=== PATIENT | female | born 1985 | race Caucasian/White ===

== ENCOUNTER 2018-12-25 18:48 | Emergency (ER) | payer BC ==
--- NOTE | 2018-12-25 19:27 | ERPHSYRPT ---
- History of Present Illness Time Seen by Provider: 12/25/18 19:15 Source: patient Exam Limitations: no limitations Patient Subjective Stated Complaint: Right side of jaw swollen due to an abscessed bottom tooth in the mouth, began 3 days ago, has dentist appt for January 21 for an extraction Triage Nursing Assessment: Pt rates pain 8/10, hypertensive, denies any other issues Physician History: 33-year-old white female arrives with complaint of pain in her right lower mandibular region symptoms for 3 days she states she has some swelling in the area. She states she has an appointment with a dentist on January 21. She has no fever no nausea no vomiting. Past medical history is negative. Past surgical history cholecystectomy and tubal ligation Timing/Duration: day(s) (3 days) Severity: moderate Modifying Factors: Worsens With: eating, immobilization, medication, movement, rest, acetaminophen, ibuprofen, nothing Associated Symptoms: No nausea, No vomiting, No abdominal pain, No shortness of breath, No heartburn, No diaphoresis, No cough, No chills, No chest pain, No fever, No headaches, No loss of appetite, No malaise, No rash, No syncope, No seizure, No weakness Allergies/Adverse Reactions: No Known Drug Allergies Allergy (Unverified 12/25/18 18:56) - Review of Systems Constitutional: No Fever, No Chills Eyes: No Symptoms Ears, Nose, & Throat: Mouth Pain, No Ear Pain, No Ear Discharge, No Hearing Changes, No Tinnitus, No Nose Pain, No Nose Congestion, No Nose Discharge, No Sinus Drainage, No Epistaxis, No Mouth Swelling, No Loose Teeth, No Throat Pain , No Throat Swelling, No Hoarse, No Painful Swallowing, No Snoring, No Stridor, No Other Respiratory: No Cough, No Dyspnea Cardiac: No Chest Pain, No Edema, No Syncope Abdominal/Gastrointestinal: No Abdominal Pain, No Nausea, No Vomiting, No Diarrhea Genitourinary Symptoms: No Dysuria Musculoskeletal: No Back Pain, No Neck Pain Skin: No Rash Neurological: No Dizziness, No Focal Weakness, No Sensory Changes Psychological: No Symptoms Endocrine: No Symptoms All Other Systems: Reviewed and Negative - Past Medical History Pertinent Past Medical History: No - Past Surgical History Past Surgical History: Yes Gastrointestinal: Cholecystectomy Female Surgical History: Tubal Ligation - Social History Smoking Status: Current every day smoker How long have you smoked: 20 years Exposure to second hand smoke: Yes Drug Use: none Patient Lives Alone: No - Female History Hx Now: Yes (tubal) - Nursing Vital Signs Nursing Vital Signs: Initial Vital Signs Temperature 98.4 F 12/25/18 18:50 Pulse Rate 100 H 12/25/18 18:50 Blood Pressure 157/103 12/25/18 18:50 O2 Sat by Pulse Oximetry 99 12/25/18 18:50 Pain Scale Pain Intensity 8 - Physical Exam General Appearance: mild distress, alert Eye Exam: PERRL/EOMI, eyes nml inspection Ears, Nose, Throat Exam: normal ENT inspection, TMs normal, pharynx normal, moist mucous membranes, dry mucous membranes, TM abnormal (R), TM abnormal (L), pharyngeal erythema, tonsillar exudate, other (carious tooth right posterior mandibular region mild edema to face overlying this tender in this area) Neck Exam: normal inspection, non-tender, supple, full range of motion Respiratory Exam: normal breath sounds, lungs clear, No respiratory distress Cardiovascular Exam: regular rate/rhythm, normal heart sounds, normal peripheral pulses, capillary refill <2 sec Gastrointestinal/Abdomen Exam: soft, normal bowel sounds, No tenderness, No mass Back Exam: normal inspection, normal range of motion, No CVA tenderness, No vertebral tenderness Extremity Exam: normal inspection, normal range of motion, pelvis stable Neurologic Exam: alert, oriented x 3, 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 She states she's been taking Advil however she states she's not achieving pain control with this. Will go ahead and place patient on amoxicillin 500 mg orally 3 times a day [place] for pain. Inspect it did not find any narcotic prescriptions for this patient. Patient will be encouraged followup with her dentist - Departure Departure Disposition: Home Clinical Impression: Dental caries, Pain, dental, Dental abscess Condition: Fair Critical Care Time: No Referrals: DOCTOR,NO FAMILY [Primary Care Provider] - Additional Instructions: Return home. Amoxicillin 500 mg orally 3 times a day for 10 days. [place] as prescribed. Cold packs to area (external ) 24-48 hours. Continue Advil every 6 hours as needed. Avoid excessively hot or cold foods. Followup with your dentist. Return for acute distress or for severe symptoms. Prescriptions: Hydrocodone/APAP 5-325 Tab^^^ [Cl[place] 5-325 Tablet^^^] 1 each PO Q4HPRN PRN #12 tablet MDD 6 PRN Reason: dental pain Amoxicillin 500 mg PO TID #30 capsule
[2018-12-25 19:38] VITALS: BP 168/101; PULSE 97; O2SAT 96
== END 2018-12-25 19:39 | disposition home or self-care (01) ==
LOC: ED 18:48
DX: K02.9 Dental caries, unspecified (principal); K04.7 Periapical abscess without sinus
CPT/HCPCS: 99283

== ENCOUNTER 2018-12-27 01:29 | Emergency (ER) | payer BC ==
[2018-12-27 01:47] VITALS: O2SAT 99
[2018-12-27] MEDS ORDERED: CLINDAMYCIN-D5W 600 MG/50 ML*** 600 MG/50 ML BAG IV STA (01:53)
--- NOTE | 2018-12-27 02:00 | ERPHSYRPT ---
- History of Present Illness Time Seen by Provider: 12/27/18 01:50 Source: patient Patient Subjective Stated Complaint: pt is alert and oriented. pt is ambulatory with a steady gait. pt comes in with c/o right jaw pain. pt was seen yesterday in the ER for same complaint. pt has worsening swelling and pain. pt states that she moved her dental appointment up to next monday and went to followup at [facility]. pt was given Amoxicillin 500mg in ER yesterday and then at the clinic they gave her another round of Amoxicillin 500mg to take after her first round. pt has severe swelling to her left jaw and lip. Triage Nursing Assessment: see above Physician History: 33-year-old white female seen 2 days ago secondary to dental caries dental abscess patient with pain in the posterior right mandibular region seen here 2 days ago placed on amoxicillin given [place]. Patient states that she had increased swelling in her mouth she was seen yesterday morning at a local clinic. She tried to contact her dentist in the dentist apparently move her appointment up from the end of December 2 next week. Patient arrives she has a large amount of swelling in her right lateral mandibular region. Patient without fevers no nausea no vomiting. Past medical history is negative. Past surgical history includes cholecystectomy and tubal ligation. Allergies/Adverse Reactions: No Known Drug Allergies Allergy (Unverified 12/25/18 18:56) Immunizations Up to Date: Yes - Review of Systems Constitutional: No Fever, No Chills Eyes: No Symptoms Ears, Nose, & Throat: No Symptoms (again so she every, hears all night I can he wants anymore), Mouth Pain, Mouth Swelling, Other (dental pain, increasing dental abscess), No Ear Pain, No Ear Discharge, No Hearing Changes, No Tinnitus , No Nose Congestion, No Nose Discharge, No Sinus Drainage, No Epistaxis, No Loose Teeth, No Throat Pain, No Throat Swelling, No Hoarse, No Painful Swallowing, No Snoring, No Stridor Respiratory: No Cough, No Dyspnea Cardiac: No Chest Pain, No Edema, No Syncope Abdominal/Gastrointestinal: No Abdominal Pain, No Nausea, No Vomiting, No Diarrhea Genitourinary Symptoms: No Dysuria Musculoskeletal: No Back Pain, No Neck Pain Skin: No Rash Neurological: No Dizziness, No Focal Weakness, No Sensory Changes Psychological: No Symptoms Endocrine: No Symptoms All Other Systems: Reviewed and Negative - Past Medical History Pertinent Past Medical History: No - Past Surgical History Past Surgical History: Yes Gastrointestinal: Cholecystectomy Female Surgical History: Tubal Ligation - Social History Smoking Status: Current every day smoker How long have you smoked: 20 years Exposure to second hand smoke: Yes Drug Use: none Patient Lives Alone: No - Female History Hx Now: No - Nursing Vital Signs Nursing Vital Signs: Initial Vital Signs Temperature 98.4 F 12/27/18 01:38 Pulse Rate 97 H 12/27/18 01:38 Respiratory Rate 18 12/27/18 01:38 Blood Pressure 122/87 12/27/18 01:38 O2 Sat by Pulse Oximetry 99 12/27/18 01:38 Pain Scale Pain Intensity 7 - Physical Exam General Appearance: moderate distress, alert Eye Exam: PERRL/EOMI, eyes nml inspection Ears, Nose, Throat Exam: other (dental caries right mandibular molars large dental abscess right lateral mandibular region) Neck Exam: normal inspection, non-tender, supple, full range of motion Respiratory Exam: normal breath sounds, lungs clear, No respiratory distress Cardiovascular Exam: regular rate/rhythm, normal heart sounds, normal peripheral pulses, capillary refill <2 sec Gastrointestinal/Abdomen Exam: soft, normal bowel sounds, No tenderness, No mass Back Exam: normal inspection, normal range of motion, No CVA tenderness, No vertebral tenderness Extremity Exam: normal inspection, normal range of motion, pelvis stable Neurologic Exam: alert, oriented x 3, cooperative, 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, normal mood/affect, nml cerebellar function, nml station & gait, sensation nml, No motor deficits Skin Exam: normal color, warm, dry, No rash SpO2 Interpretation: normal (99%) SpO2: 99 - Course Nursing assessment & vital signs reviewed: Yes Ordered Tests: Active Orders 24 hr Category Date Time Status IV Insertion STAT Care 12/27/18 01:54 Active Medication Summary Discontinued Medications Generic Name Dose Route Start Last Admin Trade Name Freq PRN Reason Stop Dose Admin Clindamycin Phosphate 600 mg 12/27/18 02:36 12/27/18 03:00 Cleocin Phosphate Iv 600 Mg/4 Ml IM 12/27/18 02:37 600 mg STAT ONE Administration Clindamycin Phosphate Confirm 12/27/18 02:40 Cleocin Phosphate Iv 600 Mg/4 Ml Administered 12/27/18 02:41 Dose 600 mg .ROUTE .STK-MED ONE Clindamycin HCl/Dextrose 600 mg in 50 mls @ 100 mls/hr 12/27/18 01:53 02:34 Clindamycin-D5w 600 Mg/50 Ml IV 12/27/18 02:22 Not Given STAT STA Clindamycin HCl/Dextrose Confirm 12/27/18 02:15 Clindamycin-D5w 600 Mg/50 Ml Administered 12/27/18 02:16 Dose 600 mg in 50 mls @ ud IV .STK-MED ONE - Progress Progress: improved Progress Note: 12/27/18 01:58 33-year-old white female seen here 2 days ago secondary to dental abscess she is having increasing swelling in the right mandibular region continued pain in the right posterior molar secondary to a carious tooth. Patient is on amoxicillin she apparently was seen by a local clinic and was given antibiotics to take after the antibiotics I have prescribed 2 days ago but they were the same ones. Will go ahead and write for clindamycin 600 mg im and planfor the patient to go home with clindamycin 300 mg orally 3 times a day for 10 days she is to place cold packs on the area. I have recommended that the patient to followup with a dentist. 12/27/18 02:54 - Departure Departure Disposition: Home Clinical Impression: Dental abscess, Pain, dental Condition: Fair Critical Care Time: No Referrals: DOCTOR,NO FAMILY [Primary Care Provider] - Additional Instructions: Return home. Clindamycin 300 mg orally 3 times a day for 10 days. Cold packs to the area 24-48 hours. (External) Continue [place] as prescribed and or Advil every 6 hours as needed for pain. Followup with your dentist. Return for acute distress severe symptoms or for any problems. Prescriptions: Clindamycin HCl 300 mg PO TID #30 capsule
[2018-12-27] MEDS ORDERED: CLINDAMYCIN-D5W 600 MG/50 ML*** 0 MG/0 ML BAG IV ONE (02:15)
[2018-12-27] MEDS ORDERED: Cleocin Phosphate IV 600 MG/4 ML IM ONE (02:36)
[2018-12-27] MEDS ORDERED: Cleocin Phosphate IV 600 MG/4 ML ONE (02:40)
[2018-12-27 03:01] VITALS: BP 157/93; PULSE 87
== END 2018-12-27 03:34 | disposition home or self-care (01) ==
LOC: ED 01:29
DX: K04.7 Periapical abscess without sinus (principal); K08.89 Other specified disorders of teeth and supporting structures
CPT/HCPCS: 96372; 99283

== ENCOUNTER 2020-09-17 19:20 | Emergency (ER) | payer BC ==
--- NOTE | 2020-09-17 19:42 | ERPHSYRPT ---
- History of Present Illness Time Seen by Provider: 09/17/20 19:42 Source: patient Exam Limitations: no limitations Patient Subjective Stated Complaint: pt states she has bery bad teeth and has been having pain for approx 3 days. states she has a dentist appt set up but not until next week Triage Nursing Assessment: pt alert and oriented, answers questions approp. pt ambulatory with steady gait noted, respirations nonlabored with lungs cta. skin warm and dry. broken teeth noted to lt upper mouth. Physician History: This is a 35-year-old obese white female who has known chronic poor dentition and presents with left upper molar region dental pain. Patient has a dentist appointment next week. She has been using ibuprofen and naproxen as well as Orajel [id number]. This is not helping her pain. She has not had a fever. And there are no intraoral/gingival abscesses present Severity: mild ENT Location: dental Prearrival Treatment: over the counter meds Associated Symptoms: tooth pain Allergies/Adverse Reactions: No Known Drug Allergies Allergy (Verified 09/17/20 19:36) Home Medications: Alprazolam [Xanax] 0.5 mg PO BIDPRN PRN 09/17/20 [History] Venlafaxine HCl ER 75 mg [Effexor XR 75 MG] 75 mg PO DAILY 09/17/20 [History] Hx Tetanus, Diphtheria Vaccination/Date Given: Yes Hx Influenza Vaccination/Date Given: No Hx Pneumococcal Vaccination/Date Given: No Immunizations Up to Date: Yes Travel Risk - International Travel Have you traveled outside of the country in past 3 weeks: No - Coronavirus Screening Are you exhibiting any of the following symptoms?: No Close contact with a COVID-19 positive Pt in past 14-21 Days: No - Vaccine Status Have you recieved a Covid-19 vaccination: No - Review of Systems Constitutional: No Symptoms Eyes: No Symptoms Ears, Nose, & Throat: Other (Dental pain) Respiratory: No Symptoms Cardiac: No Symptoms Abdominal/Gastrointestinal: No Symptoms Genitourinary Symptoms: No Symptoms Musculoskeletal: No Symptoms Skin: No Symptoms Neurological: No Symptoms Psychological: No Symptoms Endocrine: No Symptoms Hematologic/Lymphatic: No Symptoms Immunological/Allergic: No Symptoms All Other Systems: Reviewed and Negative - Past Medical History Pertinent Past Medical History: No - Past Surgical History Past Surgical History: Yes Gastrointestinal: Cholecystectomy Female Surgical History: Tubal Ligation - Social History Smoking Status: Current every day smoker How long have you smoked: 20 years Exposure to second hand smoke: Yes Drug Use: none Patient Lives Alone: No - Female History Hx Last Menstrual Period: 2 days Hx Now: No - Nursing Vital Signs Nursing Vital Signs: Initial Vital Signs Temperature 97.9 F 09/17/20 19:26 Pulse Rate 90 09/17/20 19:26 Respiratory Rate 18 09/17/20 19:26 Blood Pressure 183/105 09/17/20 19:26 O2 Sat by Pulse Oximetry 97 09/17/20 19:26 Pain Scale Pain Intensity 7 - Physical Exam General Appearance: no apparent distress, alert, anxiety Eye Exam: bilateral eye: normal inspection, PERRL, EOMI Ear Exam: bilateral ear: auricle normal Nasal Exam: normal inspection Throat Exam: pharynx normal, dental tenderness (Patient has most tenderness in the left upper molar regions. 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 May also continue using Orajel. After you use the take-home [place] tablets, began adding Tylenol 500 mg orally every 6 hours to pain control regimen. Call your dentist or primary care doctor for further management of your pain. Follow-up with a dentist for definitive care. Prescriptions: Amoxicillin 500 mg Cap [Amoxil 500 mg] 500 mg PO TID #30 capsule
[2020-09-17] MEDS ORDERED: AMOXIL 500 MG PO ONE (20:10)
[2020-09-17] MEDS ORDERED: NORCO 5/325 MG PO ONE (20:11)
[2020-09-17] MEDS ORDERED: NORCO 5/325 MG ONE (20:17)
[2020-09-17] MEDS ORDERED: AMOXIL 500 MG ONE (20:17)
[2020-09-17 20:27] VITALS: BP 164/95; PULSE 84; O2SAT 98
== END 2020-09-17 20:30 | disposition home or self-care (01) ==
LOC: ED 19:20
DX: K04.7 Periapical abscess without sinus (principal)
CPT/HCPCS: 99283; A9270-GY

== ENCOUNTER 2020-11-03 11:57 | Emergency (ER) | payer BC ==
[2020-11-03 12:47] LABS: Appearance CLOUDY (CLEAR); Bacteria FEW /HPF (NEGATIVE); Bilirubin NEGATIVE (NEGATIVE); Blood MODERATE Ery/ul (0-5); Epithelial Cells RARE /HPF (FEW); Glucose NEGATIVE (NEGATIVE); Ketones NEGATIVE (NEGATIVE); Leukocyte Esterase LARGE (NEGATIVE); Nitrite NEGATIVE (NEGATIVE); Protein,Urine Dip 30 (Negative); RBC 26-50 /HPF (0-2); Specific Gravity 1.009 (1.005-1.025); Urobilinogen NEGATIVE mg/dL (0-1); WBC >100 /HPF (0-5)
[2020-11-03 13:11] VITALS: BP 164/98; PULSE 84; O2SAT 98
--- NOTE | 2020-11-03 13:12 | XRAY ---
Indication: Right flank pain. Hematuria. Multiple contiguous axial images obtained through the abdomen and pelvis without contrast using renal stone protocol. Comparison: None Lung bases demonstrates medial right middle lobe subsegmental atelectasis/scarring. No infiltrate or effusion. Heart not enlarged. No renal calculus or evidence for obstructive uropathy in either system. Stomach is distended with food. Noncontrasted stomach and bowel loops appear nonobstructed. Normal appendix. Previous cholecystectomy. No free fluid/air. Remaining liver, pancreas, spleen, adrenal glands, kidneys, ureters, bladder, uterus, and aorta appear unremarkable for noncontrast exam. Osseous structures intact. No ventral or inguinal hernias. Impression: Negative CT abdomen/pelvis without contrast exam.
[2020-11-03] MEDS ORDERED: Macrobid 100MG Capsule PO ONE (13:15)
[2020-11-03] MEDS ORDERED: Macrobid 100MG Capsule ONE (13:17)
[2020-11-03] MEDS ORDERED: TORAdol 30 mg Injection IM ONE (13:34)
[2020-11-03] MEDS ORDERED: TORAdol 30 mg Injection ONE (13:37)
--- NOTE | 2020-11-03 13:41 | ERPHSYRPT ---
- History of Present Illness Time Seen by Provider: 11/03/20 12:30 Source: patient Exam Limitations: no limitations Patient Subjective Stated Complaint: to er c/o severe right side flank and pelvic pain x 4 days. pt reports nausea present and frequent urination Triage Nursing Assessment: To er c/o right flank sharp stabbing pains with nausea/ pt arrives p/w/d resp easy a20x3. pt apprears to be uncomfortable in cot. pt BP 171/106 pt states this is not normal for her. Physician History: Patient is a 35-year-old female presents to our ED with complaints of right- sided flank pain that has been ongoing for 4 days. Patient also associates frequency and dysuria with her symptoms. Patient describes a pressure sensation over her bladder. Symptoms started gradually and progressed in intensity. No trauma. No fever. No nausea or vomiting. Symptoms are progressive. Symptoms are moderate in intensity. No specific worsening or improving factors. Patient voices no other complaints or concerns at this time. Timing/Duration: day(s) (4 days ago) Severity: moderate Modifying Factors: Improves With: nothing Associated Symptoms: nausea (Occasional nausea. Not nauseous at this time.) Allergies/Adverse Reactions: No Known Drug Allergies Allergy (Verified 09/17/20 19:36) Home Medications: Alprazolam [Xanax] 0.5 mg PO BIDPRN PRN 09/17/20 [History] Venlafaxine HCl ER 75 mg [Effexor XR 75 MG] 75 mg PO DAILY 09/17/20 [History] Hx Tetanus, Diphtheria Vaccination/Date Given: Yes Hx Influenza Vaccination/Date Given: No Hx Pneumococcal Vaccination/Date Given: No Travel Risk - International Travel Have you traveled outside of the country in past 3 weeks: No - Coronavirus Screening Are you exhibiting any of the following symptoms?: No Close contact with a COVID-19 positive Pt in past 14-21 Days: No - Vaccine Status Have you recieved a Covid-19 vaccination: No - Review of Systems Constitutional: No Symptoms, No Fever, No Chills Eyes: No Symptoms Ears, Nose, & Throat: No Symptoms Respiratory: No Symptoms, No Cough, No Dyspnea Cardiac: No Symptoms, No Chest Pain, No Edema, No Syncope Abdominal/Gastrointestinal: No Symptoms, No Abdominal Pain, No Nausea, No Vomiting, No Diarrhea Genitourinary Symptoms: No Symptoms, No Dysuria Musculoskeletal: No Symptoms, No Back Pain, No Neck Pain Skin: No Symptoms, No Rash Neurological: No Symptoms, No Dizziness, No Focal Weakness, No Sensory Changes Psychological: No Symptoms Endocrine: No Symptoms Hematologic/Lymphatic: No Symptoms Immunological/Allergic: No Symptoms All Other Systems: Reviewed and Negative - Past Medical History Pertinent Past Medical History: No - Past Surgical History Past Surgical History: Yes Gastrointestinal: Cholecystectomy Female Surgical History: Tubal Ligation - Social History Smoking Status: Current every day smoker How long have you smoked: 20 years Exposure to second hand smoke: Yes Drug Use: none Patient Lives Alone: No - Female History Hx Last Menstrual Period: 10/13/20 Hx Now: No - Nursing Vital Signs Nursing Vital Signs: Initial Vital Signs Temperature 98.4 F 11/03/20 12:08 Pulse Rate 89 11/03/20 12:08 Respiratory Rate 22 11/03/20 12:08 Blood Pressure 171/106 11/03/20 12:08 O2 Sat by Pulse Oximetry 99 11/03/20 12:08 Pain Scale Pain Intensity 4 - Physical Exam General Appearance: no apparent distress, alert Eye Exam: PERRL/EOMI, eyes nml inspection Ears, Nose, Throat Exam: normal ENT inspection, TMs normal, pharynx normal, moist mucous membranes Neck Exam: normal inspection, non-tender, supple, full range of motion Respiratory Exam: normal breath sounds, lungs clear, No respiratory distress Cardiovascular Exam: regular rate/rhythm, normal heart sounds, normal peripheral pulses Gastrointestinal/Abdomen Exam: soft, normal bowel sounds, other (Mild right- sided costovertebral angle tenderness.. Overlying soft tissue intact. No signs of trauma.), No tenderness, No mass Back Exam: normal inspection, normal range of motion, No CVA tenderness, No vertebral tenderness Extremity Exam: normal inspection, normal range of motion, pelvis stable Neurologic Exam: alert, oriented x 3, cooperative, normal mood/affect, nml cerebellar function, nml station & gait, sensation nml, No motor deficits Skin Exam: normal color, warm, dry, No rash Lymphatic Exam: No adenopathy SpO2 Interpretation: normal SpO2: 98 O2 Delivery: Room Air - Course Nursing assessment & vital signs reviewed: Yes - CT Exams Abdomen/Pelvis CT Interpretation: Tele-radiologist Report (CT abdomen pelvis without contrast is negative) Ordered Tests: Active Orders 24 hr Category Date Time Status ABDOMEN AND PELVIS W/0 CONTRAS [CT] Stat Exams 11/03/20 12:29 Completed CULTURE,URINE Stat Lab 11/03/20 12:30 Received HCG,QUALITATIVE URINE Stat Lab 11/03/20 12:30 Completed UA W/RFX UR CULTURE Stat Lab 11/03/20 12:30 Completed Medication Summary Discontinued Medications Generic Name Dose Route Start Last Admin Trade Name Torq PRN Reason Stop Dose Admin Ketorolac Tromethamine 60 mg 11/03/20 13:34 Toradol 30 Mg Injection IM 11/03/20 13:35 STAT ONE Nitrofurantoin Macrocrystals 100 mg 11/03/20 13:15 11/03/20 13:17 Macrobid 100mg Capsule PO 11/03/20 13:16 100 mg STAT ONE Administration Nitrofurantoin Macrocrystals Confirm 11/03/20 13:17 Macrobid 100mg Capsule Administered 11/03/20 13:18 Dose 100 mg .ROUTE .[employer]-MED ONE Lab/Rad Data: Laboratory Results 11/03/20 11/03/20 Range/Units 12:30 12:30 Urine Color YELLOW (YELLOW) Urine Appearance CLOUDY (CLEAR) Urine pH 8.0 (5-6) Ur Specific [place] 1.009 (1.005-1.025) Urine Protein 30 (Negative) Urine Ketones NEGATIVE (NEGATIVE) Urine Blood MODERATE (0-5) Joaquín/ul Urine Nitrite NEGATIVE (NEGATIVE) Urine Bilirubin NEGATIVE (NEGATIVE) Urine Urobilinogen NEGATIVE (0-1) mg/dL Ur Leukocyte Esterase LARGE (NEGATIVE) Urine WBC (Auto) >100 (0-5) /HPF Urine RBC (Auto) 26-50 (0-2) /HPF U Epithel Cells (Auto) RARE (FEW) /HPF Urine Bacteria (Auto) FEW (NEGATIVE) /HPF Urine Culture Reflexed YES (NO) Urine Glucose NEGATIVE (NEGATIVE) mg/dL Urine HCG, Qual NEGATIVE (Negative) - Progress Progress: improved Progress Note: Patient received Toradol for pain control. CT abdomen pelvis without contrast negative for nephrolithiasis. UA significant for urinary tract infection. Patient received a dose of Macrobid orally in our ED. A prescription for the same will be forwarded the patient's pharmacy. Toradol will be forwarded to patient's pharmacy as well for pain control. Patient agrees to follow-up with her primary care doctor within 48 hours for evaluation. Patient voiced no other complaints concerns at this time. Portions of this note were created with voice recognition technology. There may be grammatical, spelling, punctuation or sound alike errors 11/03/20 13:40 Counseled pt/family regarding: lab results, diagnosis, need for follow-up, rad results - Departure Departure Disposition: Home Clinical Impression: UTI (urinary tract infection), Flank pain Condition: Stable Critical Care Time: No Referrals: ROYCE HO [Primary Care Provider] - Additional Instructions: Discharge/Care Plan ALEXX PEARL was seen on 11/03/20 in the Emergency Room. The patient was counseled regarding Diagnosis,Lab results, Imaging studies, need for follow up and when to return to the Emergency Room. Prescriptions given: Discharge Note I have spoken with the patient and/or caregivers. I have explained the patient's condition, diagnosis and treatment plan based on the information available to me at this time. I have answered the patient's and/or caregiver's questions and addressed any concerns. The patient and/or caregivers have as good understanding of the patient's diagnosis, condition and treatment plan as can be expected at this point. The vital signs have been stable. The patient's condition is stable and appropriate for discharge from the emergency department. The patient will pursue further outpatient evaluation with the primary care physician or other designated or consulting physician as outlined in the discharge instructions. The patient and/or caregivers are agreeable to this plan of care and follow-up instructions have been explained in detail. The patient and/or caregivers have received these instruction. The patient/and or caregivers are aware that any significant change in condition or worsening of symptoms should prompt an immediate return to this or the closest emergency department or call 911. Prescriptions: Nitrofurantoin Monohyd/M-Cryst [Macrobid 100 mg Capsule] 100 mg PO BID 7 Days #14 capsule Ketorolac Tromethamine [Toradol] 10 mg PO TID 5 Days #15 tablet
== END 2020-11-03 13:56 | disposition home or self-care (01) ==
LOC: ED 11:57
DX: N39.0 Urinary tract infection, site not specified (principal); R10.9 Unspecified abdominal pain
CPT/HCPCS: 74176; 81001; 84703; 87077; 87086; 87186; 96372; 99284; J1885; A9270-GY

== ENCOUNTER 2022-12-22 15:36 | Emergency (ER) | payer OTHER ==
[2022-12-22 16:00] VITALS: TEMP 97.3
[2022-12-22] MEDS ORDERED: TORAdol 30 mg Injection IM ONE (16:28)
[2022-12-22] MEDS ORDERED: Norflex 60 MG/2 ML IM ONE (16:28)
[2022-12-22] MEDS ORDERED: TORAdol 30 mg Injection ONE (16:37)
[2022-12-22] MEDS ORDERED: Norflex 60 MG/2 ML ONE (16:37)
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
[2022-12-22] MEDS ORDERED: Hydromorphone 1 mg/ml Injection IM ONE (19:08)
[2022-12-22] MEDS ORDERED: Hydromorphone 1 mg/ml Injection ONE (19:27)
[2022-12-22] MEDS ORDERED: ZOFRAN ODT 4 MG PO ONE (19:32)
[2022-12-22] MEDS ORDERED: ZOFRAN ODT 4 MG ONE (19:32)
[2022-12-22 20:21] VITALS: BP 143/90; PULSE 84; RESP 18
[2022-12-22 20:30] VITALS: O2SAT 97
[2022-12-22] MEDS ORDERED: NORCO 5/325 MG PO ONE (20:33)
[2022-12-22] MEDS ORDERED: NORCO 5/325 MG ONE (20:42)
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
== END 2022-12-22 21:05 | disposition home or self-care (01) ==
LOC: ED 15:36
DX: S60.222A Contusion of left hand, initial encounter (principal); S32.029A Unspecified fracture of second lumbar vertebra, initial encounter for closed fracture; S32.019A Unspecified fracture of first lumbar vertebra, initial encounter for closed fracture; V58.5XXA Driver of pick-up truck or van injured in noncollision transport accident in traffic accident, initial encounter; Z79.891 Long term (current) use of opiate analgesic; Z79.899 Other long term (current) drug therapy
CPT/HCPCS: 72100; 72131; 72192; 73130; 73502; 96372; 99285; J1170; J1885; J2360; L3908; Q0162; A9270-GY

== ENCOUNTER 2023-03-02 18:24 | Emergency (ER) | payer OTHER ==
[2023-03-02 18:34] VITALS: RESP 16; TEMP 98.8
[2023-03-02] MEDS ORDERED: AMOXIL 500 MG PO ONE (18:39)
[2023-03-02] MEDS ORDERED: PERCOCET TABLET 5/325MG PO STA (18:39)
--- NOTE | 2023-03-02 18:44 | ERPHSYRPT ---
- History of Present Illness Time Seen by Provider: 03/02/23 18:35 Source: patient Exam Limitations: no limitations Physician History: This is an obese 37-year-old white female patient who presents with several day history of left lower molar pain. The pain is not responding to amoxicillin and ibuprofen. She has a fractured tooth. She does not have dental insurance. Timing/Duration: gradual onset ENT Location: dental (Of the lower molars) Prearrival Treatment: over the counter meds Associated Symptoms: jaw pain (Left mandibular), tooth pain (Lower molars) Allergies/Adverse Reactions: No Known Drug Allergies Allergy (Verified 03/02/23 18:30) Home Medications: ALPRAZolam [Xanax] 0.5 mg PO TIDPRN PRN 09/17/20 [History] Venlafaxine HCl ER 75 mg [Effexor XR 75 MG] 75 mg PO DAILY 09/17/20 [History] Simvastatin 10 mg [Zocor 10MG] 10 mg PO HS 12/22/22 [History] Hx Tetanus, Diphtheria Vaccination/Date Given: Yes Hx Influenza Vaccination/Date Given: Yes Hx Pneumococcal Vaccination/Date Given: No Travel Risk - International Travel Have you traveled outside of the country in past 3 weeks: No - Coronavirus Screening Are you exhibiting any of the following symptoms?: No Close contact with a COVID-19 positive Pt in past 14-21 Days: No - Vaccine Status Have you recieved a Covid-19 vaccination: Yes Social Work Assistant: Unknown - Vaccination Dates Dates if Unknown: ? - Review of Systems Constitutional: No Symptoms Eyes: No Symptoms Ears, Nose, & Throat: Other (Dental painleft lower molars) Respiratory: No Symptoms Cardiac: No Symptoms Abdominal/Gastrointestinal: No Symptoms Genitourinary Symptoms: No Symptoms Musculoskeletal: No Symptoms Skin: No Symptoms Neurological: No Symptoms Psychological: No Symptoms Endocrine: No Symptoms Hematologic/Lymphatic: No Symptoms Immunological/Allergic: No Symptoms All Other Systems: Reviewed and Negative - Past Medical History Pertinent Past Medical History: Yes GI Medical History: Gallbladder Disease Psycho-Social History: Depression - Past Surgical History Past Surgical History: Yes Gastrointestinal: Cholecystectomy Female Surgical History: Tubal Ligation - Social History Smoking Status: Former smoker How long have you smoked: 20 years Exposure to second hand smoke: Yes Drug Use: none Patient Lives Alone: Yes - Nursing Vital Signs Nursing Vital Signs: Initial Vital Signs Temperature 98.8 F 03/02/23 18:24 Pulse Rate 87 10 18:24 Respiratory Rate 16 03/02/23 18:24 Blood Pressure 184/116 03/02/23 18:24 O2 Sat by Pulse Oximetry 99 03/02/23 18:24 Pain Scale Pain Intensity 8 - Physical Exam General Appearance: no apparent distress, alert, anxiety, obese Eye Exam: bilateral eye: normal inspection, PERRL, EOMI Ear Exam: bilateral ear: auricle normal Nasal Exam: normal inspection Throat Exam: dental tenderness (Left lower molars) Neck Exam: normal inspection, non-tender, supple, full range of motion, No lymphadenopathy (R), No lymphadenopathy (L) Cardiovascular/Respiratory Exam: chest non-tender, no respiratory distress Abdominal Exam: non-tender Neurologic Exam: alert, oriented x 3, cooperative, stove polisher II-XII nml as tested, normal mood/affect, nml cerebellar function, nml station & gait, sensation nml Skin Exam: normal color, warm, dry SpO2 Interpretation: normal SpO2: 99 O2 Delivery: Room Air - Course Nursing assessment & vital signs reviewed: Yes - Progress Progress: unchanged Progress Note: 03/02/23 18:42 This patient's medical issue is low complexity. The level of complexity in the work-up performed is based on review of the patient's past medical history, review of the patient's medication list, review the patient's drug allergy list, history of present illness and physical findings on examination. No radiographic or laboratory studies are necessary in this patient. Patient was given amoxicillin 500 mg orally and 1 tablet of Percocet 5/325 orally here in the emergency department. We we will remotely send a 10-day prescription amoxicillin 500 mg orally to her pharmacy. She is to follow-up with a dentist for definitive care. Counseled pt/family regarding: diagnosis, need for follow-up Medical Desision Making - Independent Historian Additional History obtained from: Spouse - Diagnostic Testing Diagnostic test were ordered, analyzed, and reviewed by me: No - Risk of complications The pt has a mod risk of morbidity or mortality based on: Need for prescription drug management - Departure Departure Disposition: Home Clinical Impression: Dental infection Condition: Stable Critical Care Time: No Referrals: ROYCE HO [Primary Care Provider] - Follow up/PCP as directed Additional Instructions: Take your antibiotics as prescribed. Alternate Tylenol and ibuprofen as discussed. Call the dentist tomorrow, 03/03/2023, to make arrangements for an appointment for definitive care. Prescriptions: Amoxicillin 500 mg Cap [Amoxil 500 mg] 500 mg PO TID #30 cap
[2023-03-02] MEDS ORDERED: AMOXIL 500 MG ONE (18:53)
[2023-03-02] MEDS ORDERED: PERCOCET TABLET 5/325MG ONE (18:53)
[2023-03-02 18:59] VITALS: BP 187/105; PULSE 48; O2SAT 98
== END 2023-03-02 19:05 | disposition home or self-care (01) ==
LOC: ED 18:24
DX: K04.7 Periapical abscess without sinus (principal); K08.89 Other specified disorders of teeth and supporting structures; Z79.899 Other long term (current) drug therapy
CPT/HCPCS: 99282; A9270-GY